=== PATIENT | male | born 1970 | race Caucasian/White ===

== ENCOUNTER 2017-05-31 10:15 | Emergency (ER) | payer OTHER ==
[~2017-05-31] VITALS: Ht 177.8 cm; Wt 93.9 kg
[~2017-05-31 10:15] MED LIST: ALBUAER2 INH; ANT25 PO; AZITTAB PO; FLUT0.15; METO100T14 PO; SERT50TA PO
[2017-05-31 10:21] VITALS: TEMP 36.7; Ht 177.8 cm; Wt 93.9 kg
--- NOTE | 2017-05-31 10:52 | EMERGENCY ROOM VISIT NOTE ---
History Report prepared by Maria Fernanda: Luisito Vivar Under the Supervision of: Dr. Toney Lee D.O. First contact with patient: 10:35 Chief Complaint: LACERATION/CUT (NON-SUTURE) Stated Complaint: HEAD INJURY Nursing Triage Summary: Pt fell face first into the floor resulting in a left forehead laceration. Denies dizziness or LOC, heating vent he was sitting on gave out which is why he fell. UTD on tetanus vaccine. History of Present Illness The patient is a 46 year old male who presents to the Emergency Room with complaints of left forehead laceration s/p fall that occurred prior to arrival. He rates this pain as 1/10. The patient states he was remodeling his house when the heating vent he was sitting on gave out, causing him to fall face forward onto the floor. He denies dizziness and LOC. He states that he is not on any blood thinners. The patient reports that his Tetanus vaccine is up to date. Source of History: patient Onset: [employer] Position: head Symptom Intensity: pain rated as 1/10 Quality: other (laceration) Associated Symptoms: No LOC Note: Patient denies dizziness. Review of Systems See HPI for pertinent positives & negatives. A total of 10 systems reviewed and were otherwise negative. Past Medical & Surgical Medical Problems: (1) Bronchitis Surgical Problems: (1) Hx of hernia repair Family History No significant family history Social History Smoking Status: Never Smoker Marital Status: Housing Status: lives with significant other Occupation Status: employed Current/Historical Medications Scheduled Albuterol (Ventolin), 2 PUFFS INH QID Azithromycin (Z-Chuckie) (Zithromax (Z-Chuckie)), 0 PO UD Meclizine HCl (Meclizine HCl), 1 TAB PO TID Metoprolol Tartrate (Lopressor) (Lopressor), 1 TAB PO DAILY Sertraline (Zoloft), 1 TAB PO DAILY Miscellaneous Medications Fluticasone Propionate (Nasal) (Flonase Allergy Relief) Allergies Coded Allergies: Penicillins (Verified Allergy, Unknown, SWELLS UP, 03/13/15) Physical Exam Vital Signs Date Time Temp Pulse Resp B/P (MAP) Pulse Ox O2 Delivery O2 Flow Rate FiO2 05/31/17 10:21 36.7 72 18 159/114 98 Room Air Physical Exam CONSTITUTIONAL/VITAL SIGNS: Reviewed / noted above. GENERAL: Non-toxic in appearance. INTEGUMENTARY: Warm, dry, and [place]. HEAD: Normocephalic. 2 inch diameter abrasion to the left supraorbital area. No open lacerations. Small amount of swelling. No significant contamination. EYES: without scleral icterus or trauma. ENT/OROPHARYNX: clear and moist. LYMPHADENOPATHY/NECK: Is supple without lymphadenopathy or meningismus. RESPIRATORY: Lungs clear and equal. CARDIOVASCULAR: Regular rate and rhythm. GI/ABDOMEN: Soft and nontender. No organomegaly or pulsatile mass. No rebound or guarding. Normal bowel sounds. EXTREMITIES: Warm and well perfused. BACK: No CVA tenderness. NEUROLOGICAL: Intact without focal deficits. PSYCHIATRIC: normal affect. MUSCULOSKELETAL: Normally developed with good muscle tone. Medical Decision & Procedures ED Course 1035: Previous medical records were reviewed. The patient was evaluated in room B4. A complete history and physical examination was performed. 1055: On reevaluation, the patient is resting. I discussed the results and findings with the patient. He verbalized agreement of the treatment plan. He was discharged home. Medical Decision Differential diagnosis: Etiologies such as fracture, dislocation, intra-abdominal, pneumothorax, intrathoracic , intracranial, neurologic, as well as other traumatic pathologies were entertained. This is a 46-year-old male who presents to the ED with a chief complaint of a face injury. The patient states that he was sitting on a bench when it moved causing him to fall onto his face on a subfloor of a house that he was working on. He was not at work but this was a private job at his house. The patient did not lose consciousness. He came in for evaluation of this. His exam reveals a 2 inch diameter abrasion overlying the left supraorbital area. There are no open lacerations. No significant examination. After regarding the patient, the wound was cleansed with Betadine and water. Topical antibiotic was applied and a dressing was applied. The patient was advised to watch for infection. His tetanus shot is up-to-date. He is felt to be stable for discharge per Head Trauma GCS Score: 15 Medication Reconcilliation Current Medication List: was personally reviewed by me Blood Pressure Screening Patient's blood pressure: Elevated blood pressure Blood pressure disposition: Elevated BP felt to be situational Impression Primary Impression: Forehead abrasion Additional Impression: Forehead contusion Scribe Attestation The scribe's documentation has been prepared under my direction and personally reviewed by me in its entirety. I confirm that the note above accurately reflects all work, treatment, procedures, and medical decision making performed by me. Departure Information Dispostion Home / Self-Care Referrals Dino Aguilar M.D. (PCP) Patient Instructions ED Abrasion, My [facility] Additional Instructions Follow-up with your doctor for signs of infection (increasing swelling, pain, redness, fevers...). Return to the emergency department for worsening or new symptoms or any concerns. You have been examined and treated today on an emergency basis only. This is not a substitute for, or an effort to provide, complete comprehensive medical care. It is impossible to recognize and treat all injuries or illnesses in a single emergency department visit. It is therefore important that you follow up closely with your doctor. Call as soon as possible for an appointment. Problem Qualifiers
[2017-05-31 10:56] VITALS: BP 159/114; PULSE 72; O2SAT 98
[2017-05-31] MEDS ORDERED: VNTHFA/IN INH (11:05)
[2017-05-31] MEDS ORDERED: LOSA100T65 PO (11:05)
[2017-05-31] MEDS ORDERED: ATOR-22 PO (11:05)
[2017-05-31] MEDS ORDERED: ZLF/50 PO (11:05)
[2017-05-31] MEDS ORDERED: CRG25 PO (11:05)
== END 2017-05-31 10:56 | disposition home or self-care (01) ==
LOC: C.EDB 10:17
DX: S00.81XA Abrasion of other part of head, initial encounter (principal); S00.83XA Contusion of other part of head, initial encounter; W19.XXXA Unspecified fall, initial encounter; Z88.0 Allergy status to penicillin